=== PATIENT | male | born 1940 | race Caucasian/White ===

== ENCOUNTER 2017-12-02 19:11 | Emergency (ER) | payer OTHER ==
[~2017-12-02] VITALS: Ht 180.3 cm; Wt 74.8 kg
[~2017-12-02 19:11] MED LIST: AMLODIPINE BES2.5 MG PO; ARICEPT5 MG PO; ASPIR 8181 MG PO; ASPIRIN325 MG PO; CHOLESTYRAMINE L4 GM PO; CITALOPRAM HBR20 MG PO; FLOMAX0.4 MG PO; IMODIUM2 MG PO; MECLIZINE HCL25 MG PO; MEN'S MULTI-VI1 EACH PO; OMEPRAZOLE40 MG PO; POTASSIUM CHLO10 ME1 PO; QUETIAPINE FUMA25 MG PO; TESTOSTERO100 MG/1 M; TYLENOL; ULTRAM50 MG PO; VITAMIN B-121000 MCG PO; VITAMIN B-122500 MCG PO; ZOCOR20 MG PO
[2017-12-02] MEDS ORDERED: TEMAZEPAM15 MG PO (19:38)
[2017-12-02] MEDS ORDERED: POTASSIUM CHLO20 ME1 PO (19:38)
[2017-12-02] MEDS ORDERED: MEN'S MULTI-VI1 EACH PO (19:38)
[2017-12-02] MEDS ORDERED: SINEMET 25-1001 EACH PO (19:38)
[2017-12-02] MEDS ORDERED: ASPIR 8181 MG PO (19:38)
[2017-12-02] MEDS ORDERED: SODIUM CHLORIDE 0.9% 1000ML 1,000 ML IV STA (19:54)
[2017-12-02] MEDS ORDERED: PANTOPRAZOLE 40 MG 10ML VIAL IV STA (19:54)
[2017-12-02 20:18] LABS: BASOPHILS # (AUTO) 0.1 (0.0-0.1); BASOPHILS % 0.7 % (0.0-1.0); EOSINOPHILS # (AUTO) 0.1 (0.0-0.4); HEMATOCRIT 45.2 % (38.2-49.6); HEMOGLOBIN 15.2 g/dL (14.0-18.0); LYMPHOCYTES % 28.4 % (18.0-39.1); MEAN CORPUSCULAR HEMOGLOBIN 31.7 pg (28-32); MEAN CORPUSCULAR HGB CONC 33.6 g/dL (31-35); MEAN CORPUSCULAR VOLUME 94.2 fL (81-99); MONOCYTES # (AUTO) 0.6 (0.2-0.8); NEUTROPHILS # (AUTO) 4.2 (2.1-6.9); NEUTROPHILS % 59.5 % (38.7-80.0); PLATELET COUNT 231 x10e3/uL (140-360); RED CELL DISTRIBUTION WIDTH 11.9 % (11.7-14.4)
[2017-12-02 20:25] LABS: INR 1.1; PROTHROMBIN TIME 13.4 seconds (11.9-14.5)
[2017-12-02 20:26] LABS: PARTIAL THROMBOPLASTIN TIME 41.6 seconds (23.8-35.5)
[2017-12-02 20:37] LABS: ALANINE AMINOTRANSFERASE 34 IU/L (0-55); ALBUMIN 4.9 g/dL (3.5-5.0); ALBUMIN/GLOBULIN RATIO 1.3 (0.8-2.0); ALKALINE PHOSPHATASE 128 IU/L (40-150); ANION GAP 12.2 mmol/L (8-16); BLOOD UREA NITROGEN 19 mg/dL (7-26); BUN/CREATININE RATIO 21 (6-25); CALCIUM 9.9 mg/dL (8.4-10.2); CARBON DIOXIDE 29 mmol/L (22-29); CHLORIDE 104 mmol/L (98-107); CREATINE KINASE 253 IU/L (30-200); CREATININE, SERUM 0.91 mg/dL (0.72-1.25); EST GLOMERULAR FILTRATION RATE > 60 ML/MIN (60-); GLUCOSE 97 mg/dL (74-118); MAGNESIUM 2.3 MG/DL (1.3-2.1); POTASSIUM 4.2 mmol/L (3.5-5.1); SODIUM 141 mmol/L (136-145)
[2017-12-02 21:07] LABS: BILIRUBIN,URINE NEGATIVE (NEGATIVE); CLARITY,URINE CLEAR (CLEAR); COLOR,URINE YELLOW (YELLOW); KETONES,URINE NEGATIVE (NEGATIVE); LEUKOCYTE ESTERASE ,URINE NEGATIVE (NEGATIVE); NITRITE,URINE NEGATIVE (NEGATIVE); PROTEIN,URINE DIPSTICK NEGATIVE (NEGATIVE); URINE UROBILINOGEN 0.2 mg/dL (0.2 - 1)
[2017-12-02 21:20] LABS: EPITHELIAL CELLS,URINE RARE /LPF; WBC,URINE (MAN) 0-5 /HPF (0-5)
[2017-12-02] MEDS ORDERED: IOPAMIDOL 370 MG/ML 200 ML INFUS..BTL INJ ONE (21:33)
[2017-12-02] MEDS ORDERED: SODIUM CHLORIDE 0.9% 50ML 50 ML ONE (21:33)
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
[2017-12-02 22:28] VITALS: BP 149/90
== END 2017-12-02 22:55 | disposition home or self-care (01) ==
LOC: ER 19:11
DX: R07.89 Other chest pain (principal); I71.2 Thoracic aortic aneurysm, without rupture
CPT/HCPCS: 36415; 71260; 80053; 81001; 82550; 82553; 83735; 83880; 84484; 85025; 85610; 85730; 93005; 99284; Q9967

== ENCOUNTER 2018-01-01 15:34 | Emergency (ER) | payer OTHER ==
[~2018-01-01] VITALS: Ht 180.3 cm; Wt 74.8 kg
[~2018-01-01 15:34] MED LIST changes: +POTASSIUM CHLO20 ME1 PO; +SINEMET 25-1001 EACH PO; +TEMAZEPAM15 MG PO
--- OUTSIDE RECORDS SUMMARY | 2018-01-01 15:37 | XMS REPORT | Continuity of Care Document ---
Author Author [facility] Organization [facility] Address [address] [place] [place] [address] Phone Unavailable Care Team Providers Care House Steward/Stewardess Name Role Phone MAURO VICTORIA MD PCP Insurance Providers Guarantor GinaBebeto Kapoor Address [address] [place] [address] Email [email or web address]ayer [place] [employer] Policy Number [id number] Subscriber's Name Bebeto Fuentes Relationship 18 Self / Same As Patient Group Number [id number] Group Name [employer] - Medicare Advantage [employer]is Effective Date 16 Advance Directives Directive Response Recorded Date/Time Does the patient have an advance directive? No 06/07/14 12:30am If yes, is advance directive on file with [facility]? No 06/25/16 9:35pm If not on file with [facility] will patient provide a copy? Yes 12/02/17 7:13pm Do you have a Directive to Physician? No 12/02/17 7:13pm Do you have a Medical Power of Metal Spraying Machine Operator? No 12/02/17 7:13pm Do you have an out of hospital Do Not Resuscitate Order? No 12/02/17 7:13pm Do you have any special needs we should be aware of? No 12/02/17 7:13pm Do you have a support person here with you today? Yes 12/02/17 7:13pm Did patient receive Notice of Privacy Practices? Yes 12/02/17 7:13pm Did patient receive patient rights and responsibilities? Yes 12/02/17 7:13pm Problems Medical Problem Onset Date Status CVA - cerebrovascular accident due to cerebral artery occlusion 06/06/2014 Acute Contusion Unknown Acute Right hip pain Unknown Acute Medications Current Home Medications Medication Dose Units Route Directions Days Qty Instructions Start Date Aspirin (Aspir 81) 81 Mg Tablet.dr 81 Mg Oral Daily Carbidopa/Levodopa (Sinemet 25-100 Mg Tablet) 1 Each Tablet 1 Each Oral Three Times A Day 30 Tab Citalopram Hydrobromide (Citalopram Hbr) 20 Mg Tablet 20 Mg Oral Daily Donepezil Hcl (Aricept) 5 Mg Tablet 10 Mg Oral Daily 60 Tab Multivitamin (Men's Multi-Vitamin) 1 Each Tablet 1 Tab Oral Daily Potassium Chloride 20 Meq Tab.er.prt 20 Meq Oral Daily Temazepam 15 Mg Capsule 7.5 Mg Oral Bedtime Past Home Medications Medication Directions Ordered Status Amlodipine Besylate 2.5 Mg Tablet, 2.5 Mg Oral Daily Discontinued Aspirin (Aspir 81) 81 Mg Tablet.dr, 81 Mg Oral Daily Discontinued Aspirin 325 Mg Tablet, 325 Mg Oral Daily Discontinued Cholestyramine (Cholestyramine Light Packet) 4 Gm Pack, 1 Packet Oral Twice A Day Discontinued Cyanocobalamin (Vitamin B-12) (Vitamin B-12) 2,500 Mcg Tab.subl, 2500 Mcg Oral Daily Discontinued Meclizine Hcl 25 Mg Tablet, 25 Mg Oral Daily Discontinued Multivitamin (Men's Multi-Vitamin) 1 Each Tablet, 1 Tab Oral Daily Discontinued Potassium Chloride 10 Meq Tab.er.prt, 10 Meq Oral Daily Discontinued Simvastatin (Zocor) 20 Mg Tablet, 10 Mg Oral Bedtime Discontinued Tamsulosin Hcl (Flomax*) 0.4 Mg Cap, 0.4 Mg Oral Daily Discontinued Tylenol , As Needed Discontinued Social History Social History Problem Response Recorded Date/Time Onset Date Status Hx Psychiatric Problems No 06/07/2014 12:30am Not Applicable Not Applicable Hx Eating Disorder No 06/07/2014 12:30am Not Applicable Not Applicable Hx Substance Use Disorder No 06/07/2014 12:30am Not Applicable Not Applicable Hx Depression No 06/07/2014 12:30am Not Applicable Not Applicable Hx Alcohol Use No 06/07/2014 12:30am Not Applicable Not Applicable Hx Substance Use Treatment No 06/07/2014 12:30am Not Applicable Not Applicable Hx Physical Abuse No 06/07/2014 12:30am Not Applicable Not Applicable Smoking Status Start Date Stop Date Never Smoker Hospital Discharge Instructions No hospital discharge instruction information available. Plan of Care Discharge Date 12/02/17 10:55pm Disposition HOME, SELF-CARE Condition at Discharge Stable Instructions/Education Provided Chest Pain - Chest Wall Forms Provided Work/School Excuse Prescriptions See Medication Section Additional Instructions/Education FOLLOW UP WITH YOUR DEHYDROGENATION CONVERTER OPERATOR TOMORROW CALL FOR APPT GET PLENTY OF REST Functional Status No functional status information available. Allergies, Adverse Reactions, Alerts Allergen Type Severity Reaction Status Last Updated Morphine Allergy Unknown Active 06/25/16 Immunizations No immunization information available. Vital Signs Acute Vital Signs Vital Response Date/Time Blood Pressure 149/90 mm Hg 12/02/2017 10:28pm Height 5 ft 11 in 12/02/2017 7:30pm Weight 165 lb 12/02/2017 7:30pm Body Mass Index 23.0 kg/m^2 12/02/2017 7:30pm Results Laboratory Results Test Name Result Units Flags Reference Collection Date/Time Result Date/ Time Comments White Blood Count 7.00 x10e3/uL 4.8-10.8 12/02/2017 7:55pm 12/02/2017 8 :21pm Red Blood Count 4.80 x10e6/uL 4.3-5.7 12/02/2017 7:55pm 12/02/2017 8: 21pm Hemoglobin 15.2 g/dL 14.0-18.0 12/02/2017 7:55pm 12/02/2017 8:21pm Hematocrit 45.2 % 38.2-49.6 12/02/2017 7:55pm 12/02/2017 8:21pm Mean Corpuscular Volume 94.2 fL 81-99 12/02/2017 7:55pm 12/02/2017 8: 21pm Mean Corpuscular Hemoglobin 31.7 pg 28-32 12/02/2017 7:55pm 12/02/2017 8:21pm Mean Corpuscular Hemoglobin Concent 33.6 g/dL 31-35 12/02/2017 7:55pm 12/02/2017 8:21pm Red Cell Distribution Width 11.9 % 11.7-14.4 12/02/2017 7:55pm 2017 8:21pm Platelet Count 231 x10e3/uL 140-360 12/02/2017 7:55pm 12/02/2017 8: 21pm Neutrophils (%) (Auto) 59.5 % 38.7-80.0 12/02/2017 7:55pm 12/02/2017 8: 21pm Lymphocytes (%) (Auto) 28.4 % 18.0-39.1 12/02/2017 7:55pm 12/02/2017 8: 21pm Monocytes (%) (Auto) 9.0 % 4.4-11.3 12/02/2017 7:55pm 12/02/2017 8: 21pm Eosinophils (%) (Auto) 2.0 % 0.0-6.0 12/02/2017 7:55pm 12/02/2017 8: 21pm Basophils (%) (Auto) 0.7 % 0.0-1.0 12/02/2017 7:55pm 12/02/2017 8:21pm IM GRANULOCYTES % 0.4 % 0.0-1.0 12/02/2017 7:55pm 12/02/2017 8:21pm Neutrophils # (Auto) 4.2 2.1-6.9 12/02/2017 7:55pm 12/02/2017 8:21pm Lymphocytes # (Auto) 2.0 1.0-3.2 12/02/2017 7:55pm 12/02/2017 8:21pm Monocytes # (Auto) 0.6 0.2-0.8 12/02/2017 7:55pm 12/02/2017 8:21pm Eosinophils # (Auto) 0.1 0.0-0.4 12/02/2017 7:55pm 12/02/2017 8:21pm Basophils # (Auto) 0.1 0.0-0.1 12/02/2017 7:55pm 12/02/2017 8:21pm Absolute Immature Granulocyte (auto 0.03 x10e3/uL 0-0.1 12/02/2017 7: 55pm 12/02/2017 8:21pm Prothrombin Time 13.4 seconds 11.9-14.5 12/02/2017 7:55pm 12/02/2017 8: 27pm Prothromb Time International Ratio 1.10 12/02/2017 7:55pm 2017 8:27pm Oral Anticoagulant Therapy INR Values: 1. Low Intensity Therapy 1.5 - 2.0 2. Moderate Intensity Therapy 2.0 - 3.0 3. High Intensity Therapy(1) 2.5 - 3.5 4. High Intensity Therapy(2) 3.0 - 4.0 5. Panic Value INR > 5.0 Activated Partial Thromboplast Time 41.6 seconds H 23.8-35.5 12/02/2017 7 :55pm 12/02/2017 8:27pm Urine Color YELLOW YELLOW 12/02/2017 8:32pm 12/02/2017 9:07pm Urine Clarity CLEAR CLEAR 12/02/2017 8:32pm 12/02/2017 9:07pm Urine Specific [place] 1.015 1.010-1.025 12/02/2017 8:32pm 2017 9:07pm Urine pH 5 5 - 7 12/02/2017 8:32pm 12/02/2017 9:07pm Urine Leukocyte Esterase NEGATIVE NEGATIVE 12/02/2017 8:32pm 2017 9:07pm Urine Nitrite NEGATIVE NEGATIVE 12/02/2017 8:32pm 12/02/2017 9:07pm Urine Protein NEGATIVE NEGATIVE 12/02/2017 8:32pm 12/02/2017 9:07pm Urine Glucose (UA) NEGATIVE NEGATIVE 12/02/2017 8:32pm 12/02/2017 9: 07pm Urine Ketones NEGATIVE NEGATIVE 12/02/2017 8:32pm 12/02/2017 9:07pm Urine Urobilinogen 0.2 mg/dL 0.2 - 1 12/02/2017 8:32pm 12/02/2017 9: 07pm Urine Bilirubin NEGATIVE NEGATIVE 12/02/2017 8:32pm 12/02/2017 9: 07pm Urine Blood NEGATIVE NEGATIVE 12/02/2017 8:32pm 12/02/2017 9:07pm Urine WBC 0-5 /HPF 0-5 12/02/2017 8:32pm 12/02/2017 9:20pm Urine RBC NONE /HPF 0-5 12/02/2017 8:32pm 12/02/2017 9:20pm Urine Bacteria NONE /HPF NONE 12/02/2017 8:32pm 12/02/2017 9:20pm Urine Epithelial Cells RARE /LPF NONE 12/02/2017 8:32pm 12/02/2017 9: 20pm Sodium Level 141 mmol/L 136-145 12/02/2017 7:55pm 12/02/2017 8:38pm Potassium Level 4.2 mmol/L 3.5-5.1 12/02/2017 7:55pm 12/02/2017 8:38pm Chloride Level 104 mmol/L 98-107 12/02/2017 7:55pm 12/02/2017 8:38pm Carbon Dioxide Level 29 mmol/L 22-29 12/02/2017 7:55pm 12/02/2017 8: 38pm Anion Gap 12.2 mmol/L 8-16 12/02/2017 7:55pm 12/02/2017 8:38pm Blood Urea Nitrogen 19 mg/dL 7-12/02/2017 7:55pm 12/02/2017 8:38pm Creatinine 0.91 mg/dL 0.72-1.25 12/02/2017 7:55pm 12/02/2017 8:38pm BUN/Creatinine Ratio 21 6-12/02/2017 7:55pm 12/02/2017 8:38pm Estimat Glomerular Filtration Rate > 60 ML/MIN 60- 12/02/2017 7:55pm 8:38pm Ranges were taken from the National Kidney Disease Education Program and the National Kidney Foundation literature. Reference ranges: 60 or greater: Normal 16-59 (for 3 consecutive months): Chronic kidney disease 15 or less: Kidney failure Glucose Level 97 mg/dL 74-118 12/02/2017 7:55pm 12/02/2017 8:38pm Calcium Level 9.9 mg/dL 8.4-10.2 12/02/2017 7:55pm 12/02/2017 8:38pm Magnesium Level 2.3 MG/DL H 1.3-2.1 12/02/2017 7:55pm 12/02/2017 8:38pm Total Bilirubin 0.8 mg/dL 0.2-1.2 12/02/2017 7:55pm 12/02/2017 8:38pm Aspartate Amino Transf (AST/SGOT) 39 IU/L H 5-34 12/02/2017 7:55pm 12/02 8:38pm Alanine Aminotransferase (ALT/SGPT) 34 IU/L 0-55 12/02/2017 7:55pm 8:38pm Total Protein 8.6 g/dL H 6.5-8.1 12/02/2017 7:55pm 12/02/2017 8:38pm Albumin 4.9 g/dL 3.5-5.0 12/02/2017 7:55pm 12/02/2017 8:38pm Globulin 3.7 g/dL H 2.3-3.5 12/02/2017 7:55pm 12/02/2017 8:38pm Albumin/Globulin Ratio 1.3 0.8-2.0 12/02/2017 7:55pm 12/02/2017 8: 38pm Alkaline Phosphatase 128 IU/L 40-150 12/02/2017 7:55pm 12/02/2017 8: 38pm B-Type Natriuretic Peptide 26.5 pg/mL 0-100 12/02/2017 7:55pm 2017 8:40pm Creatine Kinase 253 IU/L H 30-200 12/02/2017 7:55pm 12/02/2017 8:38pm Creatine Kinase MB 3.30 ng/mL 0-5.0 12/02/2017 7:55pm 12/02/2017 8: 49pm Troponin I < 0.001 ng/mL 0-0.300 12/02/2017 7:55pm 12/02/2017 8:49pm Procedures Procedure Status Date Provider(s) Computed tomography of chest with contrast Active 12/02/17 RAMÓN MOODY MD Encounters Encounter Location Arrival/Admit Date Discharge/Depart Date Attending Provider Departed Emergency Room [facility] 12/02/17 7:11pm 10:55pm RAMÓN MOODY MD
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
[2018-01-01 16:19] LABS: BASOPHILS % 0.4 % (0.0-1.0); EOSINOPHILS # (AUTO) 0.1 (0.0-0.4); EOSINOPHILS % 1.7 % (0.0-6.0); HEMATOCRIT 41.8 % (38.2-49.6); HEMOGLOBIN 14.4 g/dL (14.0-18.0); LYMPHOCYTES # (AUTO) 2.2 (1.0-3.2); LYMPHOCYTES % 31.4 % (18.0-39.1); MEAN CORPUSCULAR HEMOGLOBIN 31.6 pg (28-32); MEAN CORPUSCULAR HGB CONC 34.4 g/dL (31-35); MEAN CORPUSCULAR VOLUME 91.7 fL (81-99); MONOCYTES # (AUTO) 0.7 (0.2-0.8); MONOCYTES % 9.9 % (4.4-11.3); NEUTROPHILS # (AUTO) 3.8 (2.1-6.9); NEUTROPHILS % 55.9 % (38.7-80.0); PLATELET COUNT 217 x10e3/uL (140-360); RED BLOOD COUNT 4.56 x10e6/uL (4.3-5.7); RED CELL DISTRIBUTION WIDTH 11.9 % (11.7-14.4)
[2018-01-01 16:39] LABS: CLARITY,URINE CLEAR (CLEAR); COLOR,URINE YELLOW (YELLOW)
[2018-01-01 16:40] LABS: BLOOD UREA NITROGEN 15 mg/dL (7-26); BUN/CREATININE RATIO 18 (6-25); CALCIUM 9.4 mg/dL (8.4-10.2); CARBON DIOXIDE 25 mmol/L (22-29); CHLORIDE 104 mmol/L (98-107); CREATININE, SERUM 0.84 mg/dL (0.72-1.25); EST GLOMERULAR FILTRATION RATE > 60 ML/MIN (60-); GLUCOSE 87 mg/dL (74-118); SODIUM 137 mmol/L (136-145)
[2018-01-01 16:40] LABS: BILIRUBIN,URINE NEGATIVE (NEGATIVE); KETONES,URINE NEGATIVE (NEGATIVE); LEUKOCYTE ESTERASE ,URINE NEGATIVE (NEGATIVE); NITRITE,URINE NEGATIVE (NEGATIVE); PROTEIN,URINE DIPSTICK NEGATIVE (NEGATIVE); URINE UROBILINOGEN 0.2 mg/dL (0.2 - 1)
[2018-01-01 16:52] LABS: WBC,URINE (MAN) 0-5 /HPF (0-5)
[2018-01-01 16:53] LABS: BACTERIA,URINE RARE /HPF; EPITHELIAL CELLS,URINE RARE /LPF
[2018-01-01 17:30] VITALS: BP 149/86
== END 2018-01-01 17:32 | disposition home or self-care (01) ==
LOC: ER 15:39
DX: N50.1 Vascular disorders of male genital organs (principal); F03.90 Unspecified dementia, unspecified severity, without behavioral disturbance, psychotic disturbance, mood disturbance, and anxiety; Z95.0 Presence of cardiac pacemaker
CPT/HCPCS: 36415; 80048; 81001; 85025; 99283

== ENCOUNTER → 2018-02-01 | Outpatient (CLI) | payer OTHER ==
[~2018-02-01] MED LIST changes: +FENTANYL CITRATE/PF 100MCG/2 ML INJ ONE; +MIDAZOLAM HCL 2 MG/2 ML VIAL ONE
[2018-02-01 08:33] LABS: PROTHROMBIN TIME 12.4 seconds (11.9-14.5)
[2018-02-01 08:34] LABS: PARTIAL THROMBOPLASTIN TIME 36.7 seconds (23.8-35.5)
--- NOTE | 2018-02-01 12:50 | Diagnostic Imaging Report ---
PROCEDURE:CT GUIDED NEEDLE PLACEMENT COMPARISON:[facility], CT, OUTSIDE CT IMAGES, 12/16/2017, 11:58. INDICATIONS:RIGHT RENAL BIOPSY FINDINGS: Written and verbal consent were obtained. Patient was placed prone on the CT table. Preliminary CT scans identified the exophytic right upper pole renal mass. A safe entry route was identified and the overlying skin was prepped and draped in usual sterile fashion. Lidocaine 1% was used for local pain control. A 19 gauge guiding needle was placed into the exophytic upper pole renal mass. A 20 gauge Chiba needle was then placed for an FNA. This was revealing for aspiration of straw-colored fluid approximately 5 cc in amount. Following this 2 core biopsies of were obtained with a 20 gauge 1 cm throw biopsy gun. The patient tolerated the procedure well, and there were no immediate post-procedural complications. CONCLUSION: Successful CT-guided aspiration and core biopsy of a cystic lesion in the right upper renal pole. Donovan Thompson D.O. Dictated by: Donovan Thompson D.O. on 02/01/2018 at 12:52 Electronically approved by: Donovan Thompson D.O. on 02/01/2018 at 12:52
== END ==
LOC: CT 07:29
PROVIDERS: ATTEND Urology
DX: N28.89 Other specified disorders of kidney and ureter (principal)
CPT/HCPCS: 36415; 50200; 77012; 85049; 85610; 85730; 88112; 88172; 88173; J2250; 88305

== ENCOUNTER 2019-01-07 17:41 | Observation (INO) | payer MEDICARE ==
[~2019-01-07] VITALS: Ht 180.3 cm; Wt 82.6 kg
[~2019-01-07 17:41] MED LIST changes: -FENTANYL CITRATE/PF 100MCG/2 ML INJ ONE; -MIDAZOLAM HCL 2 MG/2 ML VIAL ONE
[2019-01-07 18:36] LABS: INR 0.93
[2019-01-07 18:37] LABS: PARTIAL THROMBOPLASTIN TIME 36.5 seconds (23.8-35.5)
[2019-01-07 18:41] LABS: BASOPHILS % 0.5 % (0.0-1.0); EOSINOPHILS # (AUTO) 0.1 (0.0-0.4); EOSINOPHILS % 1.4 % (0.0-6.0); HEMATOCRIT 42.3 % (38.2-49.6); HEMOGLOBIN 14.3 g/dL (14.0-18.0); LYMPHOCYTES # (AUTO) 1.7 (1.0-3.2); LYMPHOCYTES % 30.8 % (18.0-39.1); MEAN CORPUSCULAR HEMOGLOBIN 32.6 pg (28-32); MEAN CORPUSCULAR HGB CONC 33.8 g/dL (31-35); MEAN CORPUSCULAR VOLUME 96.4 fL (81-99); MONOCYTES # (AUTO) 0.6 (0.2-0.8); MONOCYTES % 10.9 % (4.4-11.3); NEUTROPHILS # (AUTO) 3.1 (2.1-6.9); PLATELET COUNT 205 x10e3/uL (140-360); RED BLOOD COUNT 4.39 x10e6/uL (4.3-5.7); RED CELL DISTRIBUTION WIDTH 11.8 % (11.7-14.4)
[2019-01-07 18:42] LABS: ALANINE AMINOTRANSFERASE 25 IU/L (0-55); ALBUMIN 3.7 g/dL (3.5-5.0); ALBUMIN/GLOBULIN RATIO 1.1 (0.8-2.0); ALKALINE PHOSPHATASE 126 IU/L (40-150); ANION GAP 11.8 mmol/L (8-16); BLOOD UREA NITROGEN 11 mg/dL (7-26); BUN/CREATININE RATIO 12 (6-25); CALCIUM 9.5 mg/dL (8.4-10.2); CARBON DIOXIDE 26 mmol/L (22-29); CHLORIDE 106 mmol/L (98-107); CREATINE KINASE 190 IU/L (30-200); CREATININE, SERUM 0.95 mg/dL (0.72-1.25); EST GLOMERULAR FILTRATION RATE > 60 ML/MIN (60-); GLUCOSE 116 mg/dL (74-118); MAGNESIUM 2.5 MG/DL (1.3-2.1); POTASSIUM 3.8 mmol/L (3.5-5.1); SODIUM 140 mmol/L (136-145)
--- NOTE | 2019-01-07 18:42 | Diagnostic Imaging Report ---
EXAM: Single AP view of the chest (Portable). COMPARISON: CT chest 12/02/2017 INDICATION: ^ERMD ORDER ^[id number] ^1815 ^Y FINDINGS: Single portable AP view of the chest. The visualized bones and soft tissues, cardiac silhouette lungs, pleura appear unchanged. IMPRESSION: 1. Lines/tubes: 2 pacemaker device overlying the left upper chest with leads overlying the right atrial appendage and right ventricle. Leads appear intact. 2. Mild central pulmonary vascular congestion. Signed by: Dr. Arcaeli Márquez M.D. on 01/07/2019 6:39 PM
--- NOTE | 2019-01-07 19:39 | Diagnostic Imaging Report ---
EXAMINATION: Head CT without contrast. HISTORY:Dizziness and weakness. COMPARISON:Report of CT brain from 06/06/2014, images are not available for comparison at the time of interpretation. TECHNIQUE: Multidetector axial images were obtained from the foramen magnum to the vertex without contrast. The images were reconstructed using brain and bone algorithms. Thin section brain images were reformatted into coronal and sagittal planes. Dose modulation, iterative reconstruction, and/or weight based adjustment of the mA/kV was utilized to reduce the radiation dose to as low as reasonably achievable. Intravenous contrast: None IMAGE QUALITY: Acceptable. FINDINGS: Skull/scalp: No lytic or blastic. lesions. Expected postoperative changes in the sella sella from transsphenoidal approach with residual soft tissue density in the superior aspect of the sphenoid sinus and along the floor of the sella. Parenchyma: Nonspecific bilateral frontoparietal patchy white matter hypodensity are likely related to small vessel ischemic changes. Old lacunar infarct in the anterior limb of right internal capsule and left caudate head. Focal hypodensity in left frontal pires radiata represents age indeterminate lacunar infarct. No acute hemorrhage, mass or acute major vascular territorial infarct. Arteries: No density suggestive of thrombosis. Dural sinuses: No abnormal density suggestive of thrombosis. Ventricles: Moderate compensated dilatation due to volume loss. No hydrocephalus. Extra-axial spaces: No abnormal density. Brain volume: Generalized age-related cerebral volume loss. Craniocervical junction: No mass, Chiari malformation, or basilar invagination. Sella: As detailed above. Paranasal/mastoid sinuses: Complete opacification of right frontal sinus. IMPRESSION: 1. Age indeterminate lacunar infarct in left frontal pires radiata. 2. Mild supratentorial white matter microvascular ischemic changes, old lacunar infarct in anterior limb of right internal capsule and left caudate head. 3. Generalized age-related cerebral volume loss. 4. Expected postoperative changes in the sella from transsphenoidal approach. Signed by: Dr. Hailey Yeager M.D. on 01/07/2019 7:36 PM
[2019-01-07 20:18] LABS: BACTERIA,URINE FEW /HPF; BILIRUBIN,URINE NEGATIVE (NEGATIVE); CLARITY,URINE CLEAR (CLEAR); COLOR,URINE YELLOW (YELLOW); EPITHELIAL CELLS,URINE FEW /LPF; KETONES,URINE NEGATIVE (NEGATIVE); LEUKOCYTE ESTERASE ,URINE NEGATIVE (NEGATIVE); NITRITE,URINE NEGATIVE (NEGATIVE); PROTEIN,URINE DIPSTICK NEGATIVE (NEGATIVE); URINE UROBILINOGEN 0.2 mg/dL (0.2 - 1); WBC,URINE (MAN) 0-5 /HPF (0-5)
[2019-01-07] MEDS ORDERED: DONEPEZIL HCL10 MG PO (20:26)
[2019-01-07] MEDS ORDERED: ATORVASTATIN CA20 MG PO (20:26)
[2019-01-07] MEDS ORDERED: FLUTICASONE PRO16 GM (20:26)
[2019-01-07] MEDS ORDERED: FINASTERIDE5 MG PO (20:26)
[2019-01-07 20:37] VITALS: BP 155/73
--- NOTE | 2019-01-07 20:57 | NUR ---
Received patient from ER at this time. Patient is A&Ox3. Lung sounds clear. Bowel sounds active. Skin intact. Scab to right elbow noted and some small healing skin tears to feet. Patient has cane at bedside and needs standby assist. R AC 20g IV is asymptomatic, intact, and patent. Bed locked in lowest position, side rails up x2, personal items in reach, call light in reach.
[2019-01-07 21:35] VITALS: BP 155/73
[2019-01-07] MEDS ORDERED: MELATONIN3 MG PO (22:02)
[2019-01-07 22:03] VITALS: BP 155/73
[2019-01-08] VITALS (8 sets, daily range): BP systolic 113–156; BP diastolic 73–78
--- NOTE | 2019-01-08 00:19 | NUR ---
PATIENT IS ASLEEP IN BED. NO S/S OF PAIN OBSERVED. BED LOCKED AND IN LOWEST POSITION, BED ALARM ON, BELONGINGS AND CALL LIGHT WITHIN EASY REACH.
[2019-01-08] MEDS ORDERED: PNEUMOCOCCAL VACCINE POLYVALENT 23 MCG/0.5 ML VIAL IM SCH (09:00)
[2019-01-08] MEDS ORDERED: AMLODIPINE BESYLATE 10 MG TAB PO NR (10:15)
[2019-01-08] MEDS: MIDODRINE 2.5 MG TAB PO SCH ×3 (10:25→16:00)
[2019-01-08] MEDS: CARBIDOPA/LEVODOPA 25/100 TAB PO SCH ×3 (10:25→21:30)
--- NOTE | 2019-01-08 14:45 | History and Physical ---
The patient placed on observation. PRIMARY CARE PHYSICIAN: . CHIEF COMPLAINT: Generalized weakness and orthostasis hypotension with dizziness and fall. HISTORY: A 78 years old male with multiple chronic medical problems. The patient had multiple back surgeries in the past. He also has diagnosis of Parkinson disease. He is on medication. The patient is basically having off and on blood pressure problem, especially positional. The patient has orthostasis hypotension. The patient is stable at this time. Blood pressure is elevated on rest, but when he stand up, blood pressure dropped. The patient then experienced dizziness and fall. The patient is otherwise stable at this time. No dizziness or weakness on rest. PAST MEDICAL HISTORY: CVA, Parkinson disease, chronic kidney disease, dyslipidemia, reflux, enlarged prostate, dementia. PAST SURGICAL HISTORY: Pituitary brain surgery, multiple back surgeries, plastic surgery and low back fusion. SOCIAL HISTORY: The patient does not smoke or use alcohol. No recreational drugs. ALLERGIES: TO MORPHINE. HOME MEDICATIONS: Aricept, Celexa, potassium, aspirin, multivitamins, Sinemet, and temazepam. PHYSICAL EXAMINATION: VITAL SIGNS: Temperature is 97, blood pressure 156/75, pulse rate 66, respirations 20. GENERAL: The patient is not in acute distress. He is awake. HEENT: Normocephalic, atraumatic. Anicteric. NECK: Supple grossly. PULMONARY: Diminished breath sounds without any wheezing or rales. CARDIOVASCULAR: Regular rate and pacing with pacemaker. ABDOMEN: Soft, nontender, and nondistention. EXTREMITIES: No cyanosis or edema. NEUROLOGIC: No gross focal deficit. LABORATORY DATA: Sodium is 140, potassium 3.8, chloride 106, bicarb 26, BUN 11, creatinine 0.9, glucose 116. WBC is 5.6, hemoglobin 14.3, hematocrit 43.2, and platelets 205. IMPRESSION: 1. Orthostasis hypotension. 2. Multiple chronic baseline medical problems. PLAN: Resume home medication. Try midodrine 2.5 mg three times a day. Norvasc 10 mg daily for blood pressure. We will get PT, OT. Arrange for the patient to go home with home health. Most likely, the patient will be discharged home on Wednesday. MD DINESH Reed/CHRISTOPH /[id number]
--- NOTE | 2019-01-08 17:50 | NUR ---
Patient is A&Ox3. Lung sounds clear. Bowel sounds active. Skin intact. R AC 20g IV asymptomatic, intact, and patent. No edema noted. Patient sitting in chair at side of bed at this time. Family member visiting. Reminded patient to always call for assistance before getting up. Patient verbalized understanding. Personal belongings in reach. Call light in reach.
--- NOTE | 2019-01-08 18:50 | NUR ---
rounded with coffee weigher nurse, patient resting comfortably in bed and in no distress. call mancuso within reach and bed in lowest position.
[2019-01-08] MEDS ORDERED: MELATONIN 3 MG TAB PO SCH (21:00)
[2019-01-08] MEDS ORDERED: ATORVASTATIN 20 MG TAB PO SCH (21:00)
[2019-01-08] MEDS ORDERED: DONEPEZIL HCL 5 MG TAB PO SCH (21:00)
[2019-01-09] VITALS: BP 121/74
[2019-01-09 04:00] VITALS: BP 118/76
[2019-01-09] MEDS ORDERED: AMLODIPINE BESYLATE 10 MG TAB PO SCH (06:00)
[2019-01-09 08:45] VITALS: BP 115/74
[2019-01-09] MEDS ORDERED: POTASSIUM CHLORIDE 20 MEQ TAB CR PO SCH (09:00)
[2019-01-09] MEDS ORDERED: MULTIVITAMINS/MINERALS TAB PO SCH (09:00)
[2019-01-09] MEDS ORDERED: FINASTERIDE 5 MG TAB PO SCH (09:00)
[2019-01-09] MEDS ORDERED: FLUTICASONE PROPIONATE NASAL SPRAY NS SCH (09:00)
[2019-01-09] MEDS ORDERED: ASPIRIN 81 MG CHEW TAB PO SCH (09:00)
--- NOTE | 2019-01-09 09:06 | NUR ---
CASE MANAGEMENT ASSESSMENT Skilled Nursing Professional to bedside to discuss plan of care with patient/family. CM/SW role and care transitions discussed. Anticipated discharge plan discussed along with duration of care. CM/SW discussed patients right to make decisions in care. CM/SW work hours given. Patient lives: with daughter and 2 grandchildren Admit/Transfer: thru ED Hospital/ER visits since last admit: 0 POA/Emergency contact: daughter María Fuentes [phone] Current/Previous Home Health: none currently PCP/Follow-up Care: Dr. Erickson - advised pt to follow up with his MD within 5-7 days of discharge. He verbalized understanding Current/Previous DME: walker, cane Medications (referring to index hospitalization or the first time you were in the hospital) a. Were changes made in your medications when you were in the hospital on [date of index hospitalization]? n/a b. Did you understand the changes? n/a c. Were you able to obtain your new medications right away? n/a d. Were you able to take your medications like the doctor wanted you to? n/a e. Did the hospital give you an accurate, easy to understand list of medications when you left? n/a Scale of 1-10 how comfortable does patient feel with disease management in outpatient setting: Other Services: none Employment Status: retired Areas of Concerns: weakness Referral Needs: home health Received order for home health. Spoke to pt and he signed choice for 1. [facility] and 2. [facility]. Informed him that CM will send to [facility] first. Both HH contact information was written on choice letter for pt. Signed choice form placed in chart. Copy to pt. Education Needs: safety, medical management IMM/WEEKS given and signed (if applicable): WEEKS was given on admit Goal for discharge: home with home health. CM/SW left business card at the bedside with contact information. Name and number was also written on the patients whiteboard. Patient verbalized understanding of discussion. CM will follow-up with ongoing discharge and transition of care needs.
[2019-01-09] MEDS: MIDODRINE 2.5 MG TAB PO SCH (09:10)
[2019-01-09] MEDS: CARBIDOPA/LEVODOPA 25/100 TAB PO SCH (09:10)
--- NOTE | 2019-01-09 12:00 | NUR ---
CM called and spoke to Maura at [facility] and verified that they are currently taking pt's insurance. Referral was faxed to [facility] at [phone] / P [phone].
--- NOTE | 2019-01-09 16:46 | Discharge Summary ---
PRIMARY CARE PHYSICIAN: FINAL DIAGNOSES: 1. Orthostasis hypotension. 2. Secondary to orthostasis hypotension. SUMMARY: A 78-year-old male with neuropathy and Parkinson disease, has orthostasis hypotension with recurrent dizziness and fall, walking with a cane. The patient usually use walker, but he has tried to use the cane most of time unless he travel outside his home. I discussed with the patient on changes that using a walker may be more beneficial for the patient at this time, but also to prevent fall as well. Place the patient on Norvasc 5 mg daily and midodrine 2.5 mg three times a day seemed to help the patient significantly. He did receive physical therapy and adequately feeling much better. The patient will go home today, discharged home, resume home medication. Norvasc 5 mg daily. Midodrine 2.5 mg q.8 hours. The patient to follow up with his family doctor within a week. Home health arranged for retirement visits, gait training and fall prevention at home. MD DINESH Reed/CHRISTOPH /[id number]
== END 2019-01-09 10:19 | disposition home health service (06) ==
LOC: ER 17:41 → ERHOLD 20:32 → MED/SURG 20:58
PROVIDERS: ADMIT Internal Medicine; ATTEND Internal Medicine
DX: I95.1 Orthostatic hypotension (principal); Z86.73 Personal history of transient ischemic attack (TIA), and cerebral infarction without residual deficits; G20 Parkinson's disease; I12.9 Hypertensive chronic kidney disease with stage 1 through stage 4 chronic kidney disease, or unspecified chronic kidney disease; N18.9 Chronic kidney disease, unspecified
CPT/HCPCS: 36415; 70450; 71045; 80053; 81001; 82550; 82553; 83735; 84484; 85025; 85610; 85730; 90732; 93005; 97116; 97161; 99284; G0378 ×3

== ENCOUNTER 2019-04-11 00:21 | Emergency (ER) | payer MEDICARE ==
[~2019-04-11] VITALS: Ht 180.3 cm; Wt 82.6 kg
[~2019-04-11 00:21] MED LIST changes: +ATORVASTATIN CA20 MG PO; +DONEPEZIL HCL10 MG PO; +FINASTERIDE5 MG PO; +FLUTICASONE PRO16 GM; +MELATONIN3 MG PO
--- NOTE | 2019-04-11 01:30 | Diagnostic Imaging Report ---
EXAMINATION: Head and cervical spine CT without contrast. HISTORY: Status post fall, forehead laceration, pain COMPARISON: Head CT 01/07/2019 TECHNIQUE: Multidetector axial images were obtained without contrast from the foramen magnum to the vertex and through the cervical spine. The images were reconstructed using brain and bone algorithms. Thin section brain images were reformatted into coronal and sagittal planes. Dose modulation, iterative reconstruction, and/or weight based adjustment of the mA/kV was utilized to reduce the radiation dose to as low as reasonably achievable. HEAD CT FINDINGS: Skull/scalp: No lytic or blastic lesions. No fractures. Parenchyma: Persistent mild hematocrit microvascular ischemic changes in a small chronic lacunar infarct in the anterior limb of the right internal capsule, left frontal pires radiata and left caudate head. No mass, hemorrhage or CT evidence of acute vascular insult. Brain volume: Normal for age. Ventricles: Mild ventriculomegaly, that is slightly out of proportion to the size of the cortical sulci, thinning and upward displacement of the corpus callosum, with relative partial effacement of the vertex region sulci. Some degree of normal pressure hydrocephalus cannot be excluded in the appropriate clinical setting. Arteries: No density suggestive of thrombus. Dural sinuses: No abnormal density. Extra-axial spaces: No abnormal density. Foramen magnum: No mass, Chiari malformation, or basilar invagination. Sella: No obvious mass. Expected postoperative changes in the sella sella from transsphenoidal approach with bone defect along the floor of the sella. Paranasal/mastoid sinuses: Imaged portions unremarkable. CERVICAL SPINE CT FINDINGS: Alignment:Normal alignment and lordosis. Soft tissues: Approximately 1.2 cm hypoattenuating nodule in the right lobe of the thyroid gland, grossly unchanged compared to chest CT of 12/02/2017, does not require further evaluation. Incidentally noted partial ossification of the nuchal ligament. Vertebrae: Normal height and density. No acute fracture, infection or neoplasm. Degenerative changes: C1-C2: Normal C2-C3: Tiny disc osteophyte without stenosis. C3-C4: Minimal posterior disc bulge, uncovertebral and facet arthrosis without stenosis. C4-C5: Uncovertebral and facet arthrosis minimally and the left. Mild left foramina narrowing. C5-C6: Disc osteophyte complex formation, bilateral uncovertebral and facet arthrosis. Mild spinal canal and severe foraminal stenosis. C6-C7: Disc osteophyte complex formation, bilateral uncovertebral arthrosis. Moderate bilateral foraminal stenosis. C7-T1: Bilateral facet arthrosis without significant stenosis. IMPRESSION: Head CT: 1. No acute postraumatic intracranial hemorrhage. 2. Mild chronic microvascular ischemic changes, stable compared to head CT of 01/07/2019. 3. Stable slightly disproportionate ventriculomegaly, correlation for communicating normal pressure hydrocephalus in the appropriate clinical setting is recommended. Cervical spine CT: 1. No acute fractures or dislocations. 2. Chronic degenerative changes as described. Note: Acute post traumatic spinal cord, vascular or ligamentous injury cannot adequately be assessed with CT. Signed by: Dr. Luz Palmer M.D. on 04/11/2019 1:27 AM
== END 2019-04-11 02:30 | disposition home or self-care (01) ==
LOC: ER 00:21
DX: R55 Syncope and collapse (principal); S00.83XA Contusion of other part of head, initial encounter; S00.81XA Abrasion of other part of head, initial encounter; M54.2 Cervicalgia; W01.0XXA Fall on same level from slipping, tripping and stumbling without subsequent striking against object, initial encounter; Y92.008 Other place in unspecified non-institutional (private) residence as the place of occurrence of the external cause; F03.90 Unspecified dementia, unspecified severity, without behavioral disturbance, psychotic disturbance, mood disturbance, and anxiety; E78.5 Hyperlipidemia, unspecified; K21.9 Gastro-esophageal reflux disease without esophagitis; Z86.73 Personal history of transient ischemic attack (TIA), and cerebral infarction without residual deficits
CPT/HCPCS: 70450; 72125; 99283

== ENCOUNTER 2019-07-16 16:23 | Emergency (ER) | payer MEDICARE ==
[~2019-07-16] VITALS: Ht 180.3 cm; Wt 82.6 kg
[2019-07-16 17:53] LABS: BASOPHILS % 0.7 % (0.0-1.0); EOSINOPHILS # (AUTO) 0.1 (0.0-0.4); EOSINOPHILS % 1.4 % (0.0-6.0); HEMOGLOBIN 15.6 g/dL (14.0-18.0); LYMPHOCYTES # (AUTO) 1.5 (1.0-3.2); LYMPHOCYTES % 27.1 % (18.0-39.1); MEAN CORPUSCULAR HEMOGLOBIN 32.5 pg (28-32); MEAN CORPUSCULAR HGB CONC 33.9 g/dL (31-35); MEAN CORPUSCULAR VOLUME 95.8 fL (81-99); MONOCYTES # (AUTO) 0.6 (0.2-0.8); MONOCYTES % 11.2 % (4.4-11.3); NEUTROPHILS # (AUTO) 3.3 (2.1-6.9); NEUTROPHILS % 59.2 % (38.7-80.0); PLATELET COUNT 207 x10e3/uL (140-360); RED CELL DISTRIBUTION WIDTH 11.8 % (11.7-14.4)
--- NOTE | 2019-07-16 18:03 | Diagnostic Imaging Report ---
EXAMINATION: CHEST SINGLE (PORTABLE) INDICATION: ^ERMD ORDER ^[id number] ^1750 ^Y COMPARISON: Chest radiograph 01/07/2019 FINDINGS: AP view TUBES and LINES: Stable position of a 2-lead pacemaker with leads overlying the right atrial appendage and right ventricle. Leads are intact. LUNGS: Lungs are well inflated. Lungs are clear. There is no evidence of pneumonia or pulmonary edema. PLEURA: No pleural effusion or pneumothorax. HEART AND MEDIASTINUM: Stable mild enlargement of the cardiac silhouette. BONES AND SOFT TISSUES: No acute osseous lesion. Soft tissues are unremarkable. UPPER ABDOMEN: No free air under the diaphragm. IMPRESSION: No acute thoracic abnormality. Signed by: Dr. Araceli Márquez M.D. on 07/16/2019 6:00 PM
[2019-07-16 18:14] LABS: PROTHROMBIN TIME 13.7 seconds (11.9-14.5)
[2019-07-16 18:15] LABS: PARTIAL THROMBOPLASTIN TIME 35.6 seconds (23.8-35.5)
[2019-07-16 18:31] LABS: ALANINE AMINOTRANSFERASE 26 IU/L (0-55); ALBUMIN 3.9 g/dL (3.5-5.0); ALBUMIN/GLOBULIN RATIO 1.1 (0.8-2.0); ALKALINE PHOSPHATASE 111 IU/L (40-150); ANION GAP 14.4 mmol/L (8-16); BLOOD UREA NITROGEN 14 mg/dL (7-26); BUN/CREATININE RATIO 14 (6-25); CALCIUM 9.2 mg/dL (8.4-10.2); CARBON DIOXIDE 27 mmol/L (22-29); CHLORIDE 104 mmol/L (98-107); CREATINE KINASE 152 IU/L (30-200); CREATININE, SERUM 1.03 mg/dL (0.72-1.25); EST GLOMERULAR FILTRATION RATE > 60 ML/MIN (60-); GLUCOSE 116 mg/dL (74-118); MAGNESIUM 2.3 MG/DL (1.3-2.1); POTASSIUM 4.4 mmol/L (3.5-5.1); SODIUM 141 mmol/L (136-145)
[2019-07-16 19:10] LABS: BILIRUBIN,URINE NEGATIVE (NEGATIVE); CLARITY,URINE CLOUDY (CLEAR); COLOR,URINE YELLOW (YELLOW); KETONES,URINE NEGATIVE (NEGATIVE); LEUKOCYTE ESTERASE ,URINE NEGATIVE (NEGATIVE); NITRITE,URINE NEGATIVE (NEGATIVE); PROTEIN,URINE DIPSTICK NEGATIVE (NEGATIVE); URINE UROBILINOGEN 0.2 mg/dL (0.2 - 1)
[2019-07-16 19:22] LABS: BACTERIA,URINE FEW /HPF; EPITHELIAL CELLS,URINE FEW /LPF; RBC,URINE 0-5 /HPF (0-5); WBC,URINE (MAN) 0-5 /HPF (0-5)
[2019-07-16 19:23] LABS: AMORPHOUS SEDIMENT,URINE MODERATE (FEW)
[2019-07-16 20:53] VITALS: BP 161/89
== END 2019-07-16 20:56 | disposition home or self-care (01) ==
LOC: ER 16:23
DX: R53.1 Weakness (principal); R07.89 Other chest pain; R25.2 Cramp and spasm; F03.90 Unspecified dementia, unspecified severity, without behavioral disturbance, psychotic disturbance, mood disturbance, and anxiety; E78.5 Hyperlipidemia, unspecified; K21.9 Gastro-esophageal reflux disease without esophagitis; N18.9 Chronic kidney disease, unspecified; Z86.73 Personal history of transient ischemic attack (TIA), and cerebral infarction without residual deficits
CPT/HCPCS: 36415; 71045; 80053; 81001; 82550; 82553; 83735; 83880; 84484; 85025; 85610; 85730; 93005; 99284